=== PATIENT | female | born 1995 | race Two or more races ===

== ENCOUNTER 2019-04-05 21:15 | Emergency (ER) | payer MEDICAID ==
[~2019-04-05] VITALS: Ht 162.6 cm; Wt 81.2 kg
[2019-04-05 21:29] VITALS: BP 136/89
--- NOTE | 2019-04-05 21:40 | NUR ---
BIBSELF WITH MOTHER FROM HOME TO ER BED 1. AAOX 4. NO RESP DISTRESS NOTED. AMBULATORY. C/O EAR PAIN AND BLEEDING. PT REPORTS THAT IT STARTED TO HURT 2 DAYS AGO AND STARTED BLEEDING TODAY. BLEEDING IS NOTED MINIMAL, COTTON BALLS SMEARED W/ BLOOD. SONI MORAN AT BEDSIDE FOR EVAL.
--- NOTE | 2019-04-05 22:09 | NUR ---
Patient discharged to home in stable condition. Written and verbal after care instructions given. Patient verbalizes understanding of instruction. Pt ambulatory with a steady gait
== END 2019-04-05 22:10 | disposition home or self-care (01) ==
LOC: ER 21:20
DX: O26.893 Other specified pregnancy related conditions, third trimester (principal); H60.92 Unspecified otitis externa, left ear; Z3A.31 31 weeks gestation of pregnancy